=== PATIENT | female | born 1950 | race Caucasian/White ===

== ENCOUNTER 2024-12-07 17:11 | Emergency (ER) | payer MEDICARE, OTHER, SELFPAY ==
[2024-12-07 17:17] VITALS: BP 168/90
[2024-12-07 17:35] LABS: Hematocrit 40.6 % (37.0-47.0); Hemoglobin 13.9 g/dL (12.0-16.0); Mean Corp Hgb Conc. 34.2 g/dL (33.0-37.0); Mean Corpuscular Volume 91.4 fL (81.0-99.0); Platelet Count 335 10^3/uL (130-400); Red Cell Dist. Width 12.8 % (11.5-14.5)
[2024-12-07 17:53] LABS: ALT (SGPT) 27 U/L (0-35); AST (SGOT) 23 U/L (14-36); Albumin 4.6 g/dl (3.5-5.0); Alkaline Phosphatase 62 U/L (38-126); Blood Urea Nitrogen 29 mg/dl (7-17); Calcium 10.3 mg/dl (8.4-10.2); Carbon Dioxide 31 mmol/L (22-30); Chloride 103 mmol/L (98-107); Glucose 117 mg/dl (70-99); Potassium 4.7 mmol/L (3.5-5.1); Sodium 139 mmol/L (135-145); Total Protein 7.1 g/dl (6.3-8.2); eGFR > 60.00
[2024-12-07 18:06] LABS: Troponin I < 0.012 ng/ml
[2024-12-07 18:07] LABS: Nucleated Red Blood Cells % 0.1 %
[2024-12-07 18:21] VITALS: BP 134/77
[2024-12-07 18:42] VITALS: BMI 26.1
[2024-12-07 19:12] VITALS: BP 124/78
[2024-12-07] MEDS: DUONEB 3 ML INH (19:17)
--- NOTE | 2024-12-07 19:25 | EDRN ---
Pt has had pressure in L upper chest radiating into her L jaw/shoulder for 3 weeks. Pressure is intermittent, nothing provokes or alleviates it. Pt went to urgent care twice. Last visit today pt had an abnormal EKG and was advised to come to the
ED. Pt finished steroid. Pt complains of extreme fatigue and generalized weakness and says she sleeps a lot. Pt is very active usually, swims at least three times per week. Pt feels she cannot take a deep breath at times. No fever/chills/cough,
n/v/c/d, urinary symptoms, abd pain, ill contacts. Pt noted breathing tx made her feel better at urgent care.
[2024-12-07 20:00] VITALS: BP 125/69
--- NOTE | 2024-12-07 20:54 | ED.GENMED ---
History of Present Illness
General
Chief Complaint: Chest Pain
Source: patient
Exam Limitations: none
Time Seen by Provider: 12/07/24 18:16
Nursing documentation reviewed up to this point in time: agreed with
History of Present Illness
History of Present Illness:
Note:
CHIEF COMPLAINT(S)
Chest pain and fatigue.
HISTORY OF PRESENT ILLNESS
The patient is a 74-year-old male presenting with fatigue for the past couple of weeks. About a week and a half ago, the patient saw another physician and had blood work done, which revealed abnormal ferritin levels and pre-diabetes. The patient
reported feeling particularly unwell on Sunday, experiencing chest pain described as feeling like a clamp across the shoulder and radiating up into the ear, in addition to discomfort while breathing. The patient was diagnosed with silent asthma
and prescribed prednisone and breathing treatments, which provided some relief. However, the symptoms, including chest pain and fatigue, persisted.
The patient noted the fatigue is intense, necessitating extended rest, described as 'I have to go to sleep tired and sleep for a couple of hours.' Today, the patient sought further care due to recurring symptoms. An electrocardiogram performed
earlier showed abnormalities, prompting a recommendation for emergency evaluation. The patient denies fever and cough, but confirmed previous breathing treatments have been beneficial. There is a history of wheezing without coughing, suggesting
potential asthma or bronchospasm.
PAST MEDICAL AND SURGICAL HISTORY
Recent blood work indicated high ferritin and pre-diabetes. There is no explicit past medical or surgical history provided.
PHYSICAL EXAM
General: Alert, no acute distress.
Skin: Warm, dry.
Head: Normocephalic, atraumatic.
Neck: Supple, trachea midline.
Eye, ears, nose, mouth and throat: Oral mucosa moist.
Cardiovascular: Normal peripheral perfusion, no edema.
Respiratory: Respirations are non-labored. Breath sounds consistent with wheezing noted presumably on previous evaluation by another provider.
Gastrointestinal: Abdomen nondistended.
Back: Normal range of motion, normal alignment.
Musculoskeletal: Normal range of motion, normal strength.
Neurological: Alert and oriented to person, place, time, and situation. No focal neurological deficits observed.
Psychiatric: Cooperative, appropriate mood and affect.
PROBLEM LIST
Acute:
1. Chest pain
2. Fatigue
3. Possible asthma or bronchospasm
CHRONIC MEDICAL CONDITIONS SIGNIFICANTLY AFFECTING CARE
Pre-diabetes
PLAN
1. Review chest X-ray once available to further assess respiratory issues.
2. Administer another breathing treatment to see if symptoms improve.
DIFFERENTIAL DIAGNOSIS
The Differential Diagnosis includes, in no particular order and is not limited to:
1. Asthma
2. Bronchospasm
3. Coronary artery disease
4. Myocardial infarction
5. Costochondritis
6. Pulmonary embolism
7. Heart failure
8. Anemia
9. Chronic obstructive pulmonary disease (COPD)
10. Viral upper respiratory infection.
CARE-UPDATE
12/07/24 - 20:57
Patient continues to experience fatigue over several weeks. Chest x-ray reveals no significant findings, and mononucleosis test returned negative. Plan to follow up with primary care to investigate potential viral etiology. Elevated white blood cell
count attributed to recent prednisone course for presumed bronchitis.
EKG
My independent EKG interpretation is:
- Time of EKG not specified
- Rhythm: Sinus rhythm
- Heart Rate: Not specified
- Craig: Left axis deviation
- VA Interval: Not specified
- QRS Duration: Normal
- QT Interval: Not specified
- Incomplete right bundle branch block observed
- ST Segment: No elevation noted
- T Wave: No ischemia detected
- Notable Abnormalities: Mild changes, incomplete right bundle branch block
Disposition:
SUMMARY OF ENCOUNTER
The patient, a 74-year-old male, presented to the emergency department with complaints of chest pain and fatigue. He had been experiencing fatigue for several weeks and felt particularly unwell with chest pain described as a clamping sensation
across the shoulder radiating to the ear, accompanied by discomfort when breathing. A diagnosis of silent asthma was previously made, and the patient was prescribed prednisone and breathing treatments, which provided some relief. However, the chest
pain and fatigue persisted. Abnormalities were noted on an electrocardiogram, but no acute distress was present. The patient denies fever and cough but confirmed that breathing treatments have provided some relief. Due to the persistence of
symptoms, further evaluation was necessary, and a chest X-ray showed no significant findings.
DISPOSITION
Discharge
ASSESSMENT
The patient presents with chest pain and fatigue with a history suggestive of possible asthma or bronchospasm. Other potential differential diagnoses considered include coronary artery disease, myocardial infarction, and costochondritis.
PLAN
- Conduct follow-up care with primary care for further investigation into potential viral etiology.
- Consider additional evaluations if symptoms persist or worsen.
INDEPENDENT REVIEW OF LABS AND INTERPRETATION OF TESTS
My independent review of EKG reveals sinus rhythm with a left axis deviation and an incomplete right bundle branch block observed. No ischemia was detected.
My independent chest x-ray interpretation shows no significant findings.
PATIENT EDUCATION AND COUNSELING
The patient was educated on the importance of monitoring symptoms and was advised to follow up with primary care to further investigate the underlying etiology, especially concerning fatigue and chest pain.
FOLLOW-UP INSTRUCTIONS
The patient was instructed to call their primary care office immediately to schedule a follow-up visit to ensure continuous monitoring and management of symptoms.
MEDICATION RECONCILIATION
1. Prednisone was previously prescribed for presumed bronchitis.
MEDICAL DECISION MAKING
1. Number and Complexity of Problems Addressed: Chronic conditions affecting care include pre-diabetes. Differential diagnosis includes asthma, bronchospasm, coronary artery disease, myocardial infarction, costochondritis, pulmonary embolism, heart
failure, anemia, chronic obstructive pulmonary disease (COPD), and viral upper respiratory infection.
2. Data:
Category 1
My independent interpretation of EKG showed an incomplete right bundle branch block with no ischemia detected.
My independent interpretation of the chest x-ray shows no significant findings.
3. Risk:
Consideration of Admission/Observation: Escalation of care including admission/observation was considered given the complexity and risk of the patients presenting complaint, exam findings, and/or their underlying comorbidities. However, ultimately I
feel the patient is safe for outpatient management with close follow-up. Reasoning: Work-up reassuring, does not reveal any acute life/organ threatening processes, patients symptoms well controlled upon reevaluation, reexamination is reassuring,
vitals are stable, patient agreeable with discharge, reliable for follow-up.
DIAGNOSIS
chest pain
Bronchitis, unspecified - J20.9
Fatigue - R53.83
Phy Exam
Physical Exam
Physical Exam:
.
Scores
Heart Score for Chest Pain Patients
STEMI patient?: No
History: Slightly or Non-Suspicious
ECG: Normal
Age: >/= 65 years
Risk Factors: 1 or 2 Risk Factors
Troponin: </= Normal Limit
Heart Score for Chest Pain Patients: 3
Heart Score Risk: 2.5% MACE over next 6 weeks
Course
Orders/Labs/Results
Orders:
Orders
12/07/24 17:12
EKG [Electrocardiogram (*1)] Urgent
Reason for Study: Chest Pain
EKG- Treatment ONCE
12/07/24 17:21
CR Chest - 2 Views Urgent
Comment:
Reason For Exam: SOB
12/07/24 17:25
Complete Blood Count/With Diff Urgent
Comprehensive Metabolic Panel Urgent
Monotest Urgent
Comment: ADD ON
NT-proBNP Urgent
Troponin I Urgent
12/07/24 19:00
Ipratropium/Albuterol Sulfate [Duoneb] 3 ml INH R NOW STA
12/07/24 19:35
Add On- LAB Urgent
Tests Added?: monospot
Abnormal Lab Results
12/07/24
17:25
WBC 17.8 H 10^3/uL
(4.8-10.8)
MCH 31.3 H pg
(27.0-31.0)
Abs Immat Gran (auto) 0.2 H 10^3/uL
(0-0.05)
Absolute Neuts (auto) 9.3 H 10^3/uL
(1.4-6.5)
Absolute Lymphs (auto) 6.2 H 10^3/uL
(1.2-3.4)
Absolute Monos (auto) 1.3 H 10^3/uL
(0.1-0.6)
Absolute Eos (auto) 0.8 H 10^3/uL
(0-0.7)
Immature Gran % 1.1 H %
(0-0.5)
Carbon Dioxide 31 H mmol/L
(22-30)
BUN 29 H mg/dl
(7-17)
Glucose 117 H mg/dl
(70-99)
Calcium 10.3 H mg/dl
(8.4-10.2)
12/07/24 17:25
12/07/24 17:25
Vital Signs
Initial and Last Documented VS:
Initial Vital Signs
Temp Pulse Resp BP Pulse Ox
97.8 F 87 20 168/90 98
12/07/24 17:17 12/07/24 17:17 12/07/24 17:17 12/07/24 17:17 12/07/24 17:17
Last Documented Vital Signs
Temp Pulse Resp BP Pulse Ox
97.7 F 72 14 133/71 95
12/07/24 19:12 12/07/24 21:05 12/07/24 21:05 12/07/24 21:05 12/07/24 21:05
*Pulse Oximetry
SaO2: 97
Oxygen Mode of Delivery: Room air
Patient hypoxic: no
*Critical Care Note
Total Time (30-74mins, 75-104mins- exclusive of procedures): Not Applicable
ED Attending Note
-
Portions of this chart may have been created with voice recognition software.� Occasional wrong word or��sound alike� substitutions may have occurred due to the inherent limitations of voice recognition software.
Discharge Plan
Departure
Patient Disposition: Home (Routine Discharge)
Date of Disposition: 12/07/24
Time of Disposition: 20:59
Patient with high blood pressure during this ER visit?: Yes
Condition: Good
Discharge Problem:
Chest pain, Fatigue, Bronchitis
Instructions: Fatigue, Chest Pain PCP Follow Up, BLOOD PRESSURE
Prescriptions:
No Action
venlafaxine 75 mg Capsule,Extended Release 24hr
75 mg PO DAILY
irbesartan-hydrochlorothiazide 150-12.5 mg Tablet
1 tab PO DAILY
rosuvastatin 20 mg Tablet
20 mg PO QPM
Referrals:
Donald Adair MD [Family Provider, Family Practice] - Call in 1-3 days for appt
Interventions
Interventions:
*Risk Screen - Suicide Last Done: 12/07/24 18:43
*General Assessment Last Done: 12/07/24 17:17
*Neglect/Abuse Screening Last Done: 12/07/24 18:43
*ED- Fall Risk Assessment Last Done: 12/07/24 18:43
*ED COVID-19 Vaccine History Last Done: 12/07/24 18:43
*Nursing Disposition Last Done: 12/07/24 21:10
ED- Cardiac Assessment Last Done: 12/07/24 19:15
Discharge Date and Time
Discharge Date/Time: 12/07/24 21:10
Print Language: MALAY
[2024-12-07 21:05] VITALS: BP 133/71
== END 2024-12-07 21:10 | disposition home or self-care (01) ==
LOC: EMR 17:11
PROVIDERS: EMERGENCY PHYSICIAN Emergency Medicine; FAMILY PHYSICIAN Family Medicine
DX: J40 Bronchitis, not specified as acute or chronic (principal); R07.9 Chest pain, unspecified; R53.83 Other fatigue; I45.10 Unspecified right bundle-branch block
CPT/HCPCS: 94640; 99285; 71046; 80053; 83880; 84484; 85025; 86308; 93005